=== PATIENT | female | born 1995 | race Asian ===

== ENCOUNTER 2017-09-07 18:52 | Emergency (ER) | payer BC ==
[~2017-09-07] VITALS: Ht 162.6 cm; Wt 55.9 kg
[2017-09-07 19:08] VITALS: BP 130/92; Ht 162.6 cm; Wt 55.9 kg
== END 2017-09-07 19:35 | disposition home or self-care (01) ==
LOC: ED 18:52
DX: H60.92 Unspecified otitis externa, left ear (principal)